=== PATIENT | male | born 1985 | race Two or more races ===

== ENCOUNTER 2018-01-10 17:11 | Emergency (ER) | payer MEDICAID ==
[~2018-01-10] VITALS: Ht 167.6 cm; Wt 81.6 kg
[2018-01-10 17:55] VITALS: BP 130/67
[2018-01-10] MEDS ORDERED: PROMETHAZINE HCL 25 MG/ML 1ML IM ONE (18:30)
[2018-01-10] MEDS ORDERED: KETOROLAC TROMETH 60MG/2ML VIAL IM ONE (18:30)
[2018-01-10] MEDS ORDERED: diphenhdrAMINE HCL 25 MG CAP PO ONE (18:30)
== END 2018-01-10 19:06 | disposition home or self-care (01) ==
LOC: ER 17:11
DX: R51 Headache (principal); R42 Dizziness and giddiness
CPT/HCPCS: 70450; 96372; 99284; J1885; J2550

== ENCOUNTER 2018-01-22 15:14 | Emergency (ER) | payer MEDICAID ==
[~2018-01-22] VITALS: Ht 167.6 cm; Wt 81.6 kg
[2018-01-22 16:17] VITALS: BP 126/86
== END 2018-01-22 17:11 | disposition left against medical advice (07) ==
LOC: ER 15:14
DX: S40.861A Insect bite (nonvenomous) of right upper arm, initial encounter (principal); Z53.29 Procedure and treatment not carried out because of patient's decision for other reasons; W57.XXXA Bitten or stung by nonvenomous insect and other nonvenomous arthropods, initial encounter; Y93.89 Activity, other specified; Y99.8 Other external cause status; Y92.89 Other specified places as the place of occurrence of the external cause

== ENCOUNTER 2018-09-13 12:23 | Emergency (ER) | payer MEDICAID ==
[~2018-09-13] VITALS: Ht 167.6 cm; Wt 81.6 kg
[2018-09-13 14:01] VITALS: BP 128/86
[2018-09-13] MEDS ORDERED: IBUPROFEN 800 MG TAB PO ONE (15:00)
== END 2018-09-13 15:37 | disposition home or self-care (01) ==
LOC: ER 12:23
DX: S62.394A Other fracture of fourth metacarpal bone, right hand, initial encounter for closed fracture (principal); W01.198A Fall on same level from slipping, tripping and stumbling with subsequent striking against other object, initial encounter; Y93.89 Activity, other specified; Y99.8 Other external cause status; Y92.89 Other specified places as the place of occurrence of the external cause
CPT/HCPCS: 29125; 73130

== ENCOUNTER 2018-09-17 09:16 | Emergency (ER) | payer MEDICAID ==
[~2018-09-17] VITALS: Ht 167.6 cm; Wt 81.6 kg
[2018-09-17 09:24] VITALS: BP 131/86
[2018-09-17] MEDS ORDERED: KETOROLAC TROMETH 60MG/2ML VIAL IM ONE (10:30)
== END 2018-09-17 10:59 | disposition home or self-care (01) ==
LOC: ER 09:22

== ENCOUNTER → 2023-06-15 | Emergency (ER) | payer MEDICAID ==
[~2023-06-15] VITALS: Ht 167.6 cm; Wt 88.6 kg
[2023-06-15 16:20] VITALS: BP 144/82; RESP 18; O2SAT 96
[2023-06-15 19:38] VITALS: PULSE 77
== END | disposition left against medical advice (07) ==
LOC: ER 15:59
DX: R94.31 Abnormal electrocardiogram [ECG] [EKG] (principal)
CPT/HCPCS: 93005

== ENCOUNTER 2023-06-26 13:49 | Emergency (ER) | payer MEDICAID ==
[~2023-06-26] VITALS: Ht 167.6 cm; Wt 88.0 kg
[2023-06-26 16:35] VITALS: BP 150/86; PULSE 100; RESP 19; TEMP 98.1; O2SAT 99
== END 2023-06-26 16:37 | disposition home or self-care (01) ==
LOC: ER 13:49
DX: Z00.00 Encounter for general adult medical examination without abnormal findings (principal); Z79.899 Other long term (current) drug therapy
CPT/HCPCS: 93005